=== PATIENT | male | born 1995 | race Caucasian/White ===

== ENCOUNTER 2017-07-10 12:18 | Emergency (ER) | payer OTHER ==
[2017-07-10 12:24] VITALS: RESP 16
--- NOTE | 2017-07-10 13:17 | EDPHY ---
HPI/HX/ROS/PE/MDM Narrative: CHIEF COMPLAINT: Left foot injury HPI: The patient is a 21 y/o male complaining of left foot pain secondary to an injury at [employer] yesterday. He describes his 3rd, 4th, and 5th toes on the left foot being shoved into the ground by pressure on his heel. His pain is primarily located along his 4th left toe. He is able to walk with some pain. He denies weakness, paresthesias, or other injuries. He is normally healthy. REVIEW OF SYSTEMS: Aside from elements discussed in the HPI, a comprehensive 10-point review of systems was reviewed and is negative. PMH: Denies SOCIAL HISTORY: [employer] student studying engineering. Lives in [place]. Single. PHYSICAL EXAM: General:Patient is alert, in no acute distress. Respiratory:No respiratory distress. Cardiovascular: Normal cap refill. Skin: Normal color. No rash. Warm and dry. Extremities: Left foot has ecchymosis to mid shaft of 4th digit with minimal tenderness. Otherwise extremities are normal in appearance with full range of motion. Neuro: Oriented x3. Normal motor function. Normal sensory function. ED Course: X-ray is negative for acute process. Discussed with patient. Recommended ice, hard-soled shoe, and ibuprofen for pain as needed over the next few days. Referral to podiatry if needed for continued symptoms. He is comfortable with this plan. General Time Seen by Provider: 07/10/17 12:32 Initial Vital Signs: Initial Vital Signs Temperature (C) 36.8 C 07/10/17 12:21 Heart Rate 83 07/10/17 12:21 Respiratory Rate 16 07/10/17 12:21 Blood Pressure 138/75 H 07/10/17 12:21 O2 Sat (%) 97 07/10/17 12:21 O2 Delivery Mode Room Air Allergies/Adverse Reactions: No Known Allergies Allergy (Unverified 07/10/17 12:21) Home Medications: Medication Instructions Recorded NK [No Known Home Meds] 07/10/17 Departure - Departure Disposition: Home, Routine, Self-Care Clinical Impression: Toe contusion Qualifiers: Encounter type: initial encounter Toe: unspecified toe Damage to nail status: without damage Qualified Code(s): S90.129A - Contusion of unspecified lesser toe (s) without damage to nail, initial encounter Condition: Good Instructions: Foot Contusion (ED) Additional Instructions: 1. Apply ice to sore areas. 2. Use 600mg ibuprofen every 6-8 hours over the next 2-3 days as needed for pain. 3. Follow up with a sample card maker for unimproved symptoms over the next week. 4. Wear post-op shoe for comfort while symptoms are present. Referrals: [facility],. [Clinic] - As per Instructions Carlos Mary MD [Doctor of Podiatric Medicine] - As per Instructions Report Scribed for: Wei Diallo Report Scribed by: Radha Knowles Date of Report: 07/10/17 Time of Report: 13:17 Physician Review and Approval Statement: Portions of this note were transcribed by an ED scribe. I personally performed the history, physical exam, and medical decision making; and confirm the accuracy of the information in the transcribed note.
[2017-07-10 14:16] VITALS: BP 130/84; PULSE 78; TEMP 97.9; O2SAT 94
== END 2017-07-10 14:15 | disposition home or self-care (01) ==
DX: S90.122A Contusion of left lesser toe(s) without damage to nail, initial encounter (principal); W51.XXXA Accidental striking against or bumped into by another person, initial encounter; Y99.8 Other external cause status; Y93.75 Activity, martial arts

== ENCOUNTER 2018-02-27 18:00 | Emergency (ER) | payer OTHER ==
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
[2018-02-27 19:42] VITALS: BP 137/87
== END 2018-02-27 19:40 | disposition home or self-care (01) ==
DX: R51 Headache (principal)